=== PATIENT | male | born 1975 | race African-American/Black ===

== ENCOUNTER 2016-12-27 20:45 | Emergency (ER) | payer MEDICAID | END 2016-12-27 23:02 | disposition left against medical advice (07) | LOC: ER 22:47 | DX: K08.89 Other specified disorders of teeth and supporting structures (principal); Z53.21 Procedure and treatment not carried out due to patient leaving prior to being seen by health care provider ==

== ENCOUNTER 2017-04-19 11:20 | Emergency (ER) | payer MEDICAID ==
[~2017-04-19] VITALS: Ht 180.3 cm; Wt 108.0 kg
[2017-04-19] MEDS ORDERED: GUAI600T26 PO (11:28)
[2017-04-19] MEDS ORDERED: nyquill (11:28)
[2017-04-19] MEDS ORDERED: METO-385 PO (11:28)
[2017-04-19 13:44] VITALS: BP 166/116
== END 2017-04-19 15:32 | disposition home or self-care (01) ==
LOC: ER 12:25
DX: J06.9 Acute upper respiratory infection, unspecified (principal); I10 Essential (primary) hypertension; Z91.013 Allergy to seafood; Z91.041 Radiographic dye allergy status
CPT/HCPCS: 71010; 99283